=== PATIENT | male | born 1985 | race Caucasian/White ===

== ENCOUNTER 2022-03-30 00:43 | Inpatient (IN) | payer SELFPAY ==
[~2022-03-30] VITALS: Ht 175.3 cm; Wt 88.5 kg
[2022-03-30] MEDS ORDERED: LevETIRAcetam 1,000 MG in DEXTROSE 5%-WATER 100 ML IV ONE (01:45)
[2022-03-30] MEDS ORDERED: SODIUM CHLORIDE 0.9% 1,000 ML IV ONE (01:45)
[2022-03-30] MEDS ORDERED: LORazepam 2 MG/ML VIAL IVP ONE (01:45)
[2022-03-30 01:52] LABS: EOSINOPHILS % (AUTO) 0 % (1.0-6.0); HEMOGLOBIN 14.1 g/dL (13.5-17.5); LYMPHOCYTES # (AUTO) 0.9 K/uL (1.0-4.8); LYMPHOCYTES % (AUTO) 12.1 % (22.0-44.0); MEAN CORPUSCULAR HEMOGLOBIN 34.4 pg (26.0-34.0); MEAN CORPUSCULAR HGB CONC 33.6 G/dL (31.0-37.0); MEAN CORPUSCULAR VOLUME 102 fL (80-100); MONOCYTES # (AUTO) 0.9 K/uL (0.1-1.0); MONOCYTES % (AUTO) 12.4 % (2.0-9.0); NEUTROPHILS # (AUTO) 5.2 K/uL (1.8-7.7); NEUTROPHILS % (AUTO) 74.5 % (40.0-70.0); PLATELET COUNT (AUTO) 139 K/uL (150-450); RED CELL DISTRIBUTION WIDTH 14.8 % (11.5-14.5)
[2022-03-30 02:05] LABS: ALANINE AMINOTRANSFERASE 440 U/L (12-78); ALBUMIN 4.3 g/dL (3.4-5.0); ALKALINE PHOSPHATASE 263 U/L (46-116); ANION GAP 26 mmol/L (8-16); ASPARTATE AMINOTRANSFERASE 685 U/L (15-37); BILIRUBIN,TOTAL 1.7 mg/dL (0.1-1.0); CALCIUM, TOTAL 9.1 mg/dL (8.8-10.5); CARBON DIOXIDE 17 mmol/L (22-29); CHLORIDE 95 mmol/L (98-107); CREATININE 1.11 mg/dL (0.60-1.30); GLUCOSE,RANDOM 158 mg/dL (70-110); SODIUM SERUM 138 mmol/L (136-145); TOTAL PROTEIN, SERUM 8.8 g/dL (6.4-8.2); UREA NITROGEN, BLOOD 6 mg/dL (7-18)
[2022-03-30 02:06] LABS: GLOMERULAR FILTR. RATE CALC > 60 mL/min (>60)
[2022-03-30 02:08] LABS: POTASSIUM 2.8 mmol/L (3.5-5.1)
[2022-03-30 02:11] LABS: COVID AG,FIA SOURCE NASOPHARYNGEAL
[2022-03-30] MEDS ORDERED: MAGNESIUM SULFATE 2 GM/WATER 50 ML IV ONE (02:15)
[2022-03-30] MEDS ORDERED: POTASSIUM CHL 20 MEQ/0.9% NS 1,000 ML IV ONE (02:15)
[2022-03-30] MEDS ORDERED: ONDANSETRON HCL 4 MG/2 ML VIAL IVP PRN ×2 (04:30→14:00)
[2022-03-30] MEDS: DIAZEPAM 5 MG/ML 2 ML SYRINGE IVP PRN ×2 (04:34→09:29)
[2022-03-30 08:00] VITALS: BP 142/81
[2022-03-30] MEDS ORDERED: POTASSIUM CHLORIDE 20 MEQ ER TABLET PO PRN ×2 (10:00→14:00)
[2022-03-30] MEDS: POTASSIUM CHL 10 MEQ/WATER 50 ML IV PRN ×2 (10:14→11:48)
[2022-03-30 11:46] VITALS: BP 139/88
[2022-03-30] MEDS ORDERED: MAGNESIUM HYDROXIDE SUSPENSION 30 ML UDCUP PO PRN (14:00)
[2022-03-30] MEDS ORDERED: MAGNESIUM SULFATE 4 GM/WATER 100 ML IV PRN (14:00)
[2022-03-30] MEDS ORDERED: MAGNESIUM OXIDE 400 MG TABLET PO PRN (14:00)
[2022-03-30] MEDS ORDERED: ZOLPIDEM TARTRATE 5 MG TABLET PO PRN (14:00)
[2022-03-30] MEDS ORDERED: LORazepam 2 MG/ML VIAL IVP PRN (14:00)
[2022-03-30] MEDS ORDERED: MAGNESIUM SULFATE 2 GM/WATER 50 ML IV PRN (14:00)
[2022-03-30] MEDS ORDERED: POTASSIUM CHL 10 MEQ/WATER 50 ML IV PRN (14:00)
[2022-03-30] MEDS ORDERED: ACETAMINOPHEN 325 MG TABLET PO PRN (14:00)
[2022-03-30] MEDS: 1: MAGNESIUM SULFATE 2 GM, MVI, ADULT NO.1 WITH VIT K 10 ML, THIAMINE 100 MG, FOLIC ACID IV SCH ×5 (14:26)
[2022-03-30] MEDS: PANTOPRAZOLE SODIUM 40 MG DR TABLET PO SCH (14:26)
[2022-03-30 15:35] VITALS: BP 140/86
[2022-03-30] MEDS: ChlordiazePOXIDE HCL 10 MG CAPSULE PO SCH ×2 (15:39→21:24)
[2022-03-30 19:13] LABS: ANION GAP 3 mmol/L (8-16); CALCIUM, TOTAL 8.8 mg/dL (8.8-10.5); CARBON DIOXIDE 29 mmol/L (22-29); CHLORIDE 99 mmol/L (98-107); CREATININE 0.67 mg/dL (0.60-1.30); GLUCOSE,RANDOM 115 mg/dL (70-110); PHOSPHORUS 2.6 mg/dL (2.5-4.9); POTASSIUM 3.6 mmol/L (3.5-5.1); SODIUM SERUM 131 mmol/L (136-145); UREA NITROGEN, BLOOD 5 mg/dL (7-18)
[2022-03-30 19:14] LABS: GLOMERULAR FILTR. RATE CALC > 60 mL/min (>60)
[2022-03-30 19:55] VITALS: BP 155/96
[2022-03-30 23:49] VITALS: BP 145/91
[2022-03-31] MEDS: 1: MAGNESIUM SULFATE 2 GM, MVI, ADULT NO.1 WITH VIT K 10 ML, THIAMINE 100 MG, FOLIC ACID IV SCH ×15 (03:56→20:00)
[2022-03-31 04:15] VITALS: BP 140/76
[2022-03-31 07:31] VITALS: BP 144/80
[2022-03-31] MEDS: PANTOPRAZOLE SODIUM 40 MG DR TABLET PO SCH (08:25)
[2022-03-31] MEDS: ChlordiazePOXIDE HCL 10 MG CAPSULE PO SCH ×3 (08:25→20:25)
[2022-03-31] MEDS: MULTIVITAMINS WITH MINERALS, THERAPEUTIC TABLET PO SCH (11:10)
[2022-03-31 11:58] VITALS: BP 153/75
[2022-03-31 15:00] VITALS: BP 145/87
[2022-03-31 19:48] VITALS: BP 138/91
[2022-03-31 23:27] VITALS: BP 149/93
[2022-04-01 05:15] VITALS: BP 133/92
[2022-04-01] MEDS: MULTIVITAMINS WITH MINERALS, THERAPEUTIC TABLET PO SCH (08:12)
[2022-04-01] MEDS: ChlordiazePOXIDE HCL 10 MG CAPSULE PO SCH ×3 (08:12→20:34)
[2022-04-01] MEDS: PANTOPRAZOLE SODIUM 40 MG DR TABLET PO SCH (08:12)
[2022-04-01 08:15] VITALS: BP 154/96
[2022-04-01 12:05] VITALS: BP 140/87
[2022-04-01 16:10] VITALS: BP 150/103
[2022-04-01 20:09] VITALS: BP 135/91
[2022-04-01] MEDS: 1: MAGNESIUM SULFATE 2 GM, MVI, ADULT NO.1 WITH VIT K 10 ML, THIAMINE 100 MG, FOLIC ACID IV SCH ×5 (20:34)
[2022-04-02 00:12] VITALS: BP 152/93
[2022-04-02 05:13] VITALS: BP 149/88
[2022-04-02 07:14] LABS: ANION GAP 9 mmol/L (8-16); CALCIUM, TOTAL 9.4 mg/dL (8.8-10.5); CARBON DIOXIDE 28 mmol/L (22-29); CHLORIDE 103 mmol/L (98-107); CREATININE 0.61 mg/dL (0.60-1.30); GLUCOSE,RANDOM 118 mg/dL (70-110); POTASSIUM 4.2 mmol/L (3.5-5.1); SODIUM SERUM 140 mmol/L (136-145); UREA NITROGEN, BLOOD 6 mg/dL (7-18)
[2022-04-02 07:17] LABS: GLOMERULAR FILTR. RATE CALC > 60 mL/min (>60)
[2022-04-02 07:18] LABS: EOSINOPHILS % (AUTO) 3.6 % (1.0-6.0); HEMATOCRIT 40.8 % (41-53); HEMOGLOBIN 13.8 g/dL (13.5-17.5); LYMPHOCYTES # (AUTO) 1.2 K/uL (1.0-4.8); LYMPHOCYTES % (AUTO) 21.5 % (22.0-44.0); MEAN CORPUSCULAR HEMOGLOBIN 34.8 pg (26.0-34.0); MEAN CORPUSCULAR HGB CONC 33.9 G/dL (31.0-37.0); MEAN CORPUSCULAR VOLUME 103 fL (80-100); MONOCYTES # (AUTO) 0.7 K/uL (0.1-1.0); NEUTROPHILS # (AUTO) 3.2 K/uL (1.8-7.7); NEUTROPHILS % (AUTO) 59.9 % (40.0-70.0); PLATELET COUNT (AUTO) 119 K/uL (150-450); RED BLOOD CELL COUNT(AUTO) 3.98 MIL/uL (4.50-5.90)
[2022-04-02 07:51] VITALS: BP 127/92
[2022-04-02] MEDS: MULTIVITAMINS WITH MINERALS, THERAPEUTIC TABLET PO SCH (08:28)
[2022-04-02] MEDS: PANTOPRAZOLE SODIUM 40 MG DR TABLET PO SCH (08:28)
[2022-04-02] MEDS: ChlordiazePOXIDE HCL 10 MG CAPSULE PO SCH ×2 (08:28→15:45)
[2022-04-02] MEDS: 1: MAGNESIUM SULFATE 2 GM, MVI, ADULT NO.1 WITH VIT K 10 ML, THIAMINE 100 MG, FOLIC ACID IV SCH ×5 (10:46)
[2022-04-02 12:10] VITALS: BP 143/99
[2022-04-02 15:20] LABS: BASOPHILS % (AUTO) 1.3 % (0.0-2.0); EOSINOPHILS % (AUTO) 2.4 % (1.0-6.0); HEMATOCRIT 41.8 % (41-53); HEMOGLOBIN 14.2 g/dL (13.5-17.5); LYMPHOCYTES # (AUTO) 0.9 K/uL (1.0-4.8); LYMPHOCYTES % (AUTO) 17.4 % (22.0-44.0); MEAN CORPUSCULAR HEMOGLOBIN 34.8 pg (26.0-34.0); MEAN CORPUSCULAR VOLUME 102 fL (80-100); MONOCYTES # (AUTO) 0.7 K/uL (0.1-1.0); MONOCYTES % (AUTO) 13.4 % (2.0-9.0); NEUTROPHILS # (AUTO) 3.3 K/uL (1.8-7.7); NEUTROPHILS % (AUTO) 65.5 % (40.0-70.0); PLATELET COUNT (AUTO) 130 K/uL (150-450); RED BLOOD CELL COUNT(AUTO) 4.09 MIL/uL (4.50-5.90); RED CELL DISTRIBUTION WIDTH 14.4 % (11.5-14.5)
[2022-04-02 15:36] LABS: ANION GAP 5 mmol/L (8-16); CALCIUM, TOTAL 9.5 mg/dL (8.8-10.5); CARBON DIOXIDE 30 mmol/L (22-29); CHLORIDE 101 mmol/L (98-107); GLUCOSE,RANDOM 115 mg/dL (70-110); POTASSIUM 4.9 mmol/L (3.5-5.1); SODIUM SERUM 136 mmol/L (136-145); UREA NITROGEN, BLOOD 6 mg/dL (7-18)
[2022-04-02 15:38] LABS: GLOMERULAR FILTR. RATE CALC > 60 mL/min (>60)
[2022-04-02 15:41] LABS: ALANINE AMINOTRANSFERASE 335 U/L (12-78); ALBUMIN 3.7 g/dL (3.4-5.0); ALKALINE PHOSPHATASE 189 U/L (46-116); ASPARTATE AMINOTRANSFERASE 325 U/L (15-37); BILIRUBIN,TOTAL 0.9 mg/dL (0.1-1.0)
[2022-04-02] MEDS ORDERED: CHLO10CA6 PO (15:49)
[2022-04-02] MEDS ORDERED: PANT-31 PO (15:49)
[2022-04-02] MEDS ORDERED: FOLI0.4T6 PO (15:49)
[2022-04-02] MEDS ORDERED: MULT-1239 PO (15:49)
[2022-04-02] MEDS ORDERED: THIA100T80 PO (15:49)
[2022-04-02 16:00] VITALS: BP 130/85
== END 2022-04-02 16:20 | disposition home or self-care (01) | DRG 897 ==
LOC: EMS 00:44 → 5S 06:45
PROVIDERS: ADMIT Internal Medicine; ATTEND Internal Medicine
DX: F10.139 Alcohol abuse with withdrawal, unspecified (principal); K70.9 Alcoholic liver disease, unspecified; E87.6 Hypokalemia; E83.42 Hypomagnesemia; G40.909 Epilepsy, unspecified, not intractable, without status epilepticus; Z20.822 Contact with and (suspected) exposure to COVID-19; F10.129 Alcohol abuse with intoxication, unspecified; Z91.14 Patient's other noncompliance with medication regimen; Z91.199 Patient's noncompliance with other medical treatment and regimen due to unspecified reason; Z79.899 Other long term (current) drug therapy
CPT/HCPCS: 70450; 80048; 80053; 82040; 83735; 84100; 85025; 93005; 99291; G0480; J0712; J2060; J3411; J3475; J3480; J3490; J7030; J7060